=== PATIENT | male | born 1990 | race African-American/Black ===

== ENCOUNTER 2019-01-03 06:43 | Emergency (ER) | payer SELFPAY ==
[2019-01-03] MEDS ORDERED: ONDANSETRON 4 MG/2 ML VIAL ONE (06:55)
[2019-01-03] MEDS ORDERED: NA CHLORIDE 0.9% 1,000 ML ONE (06:55)
[2019-01-03 07:00] LABS: Absolute Lymphocytes (CBC) 0.5 K/uL (0.7-4.9); Basophils % 0.2 % (0-1.3); Lymphocytes % 5.9 % (15.3-44.8); MPV 8.6 fL (7.6-11.3); RBC Red Blood Cell Count 5.15 M/uL (4.33-5.43)
[2019-01-03] MEDS ORDERED: PROMETHAZINE 25 MG/ML VIAL ONE (07:48)
[2019-01-03 07:54] LABS: Bilirubin Direct 0.2 mg/dL (0-0.2); Bilirubin Total 0.5 mg/dL (0.2-1.0); Potassium 3.5 mmol/L (3.5-5.1); Protein, Total 7.5 g/dL (6.4-8.2)
[2019-01-03] MEDS ORDERED: FENTANYL CITR 100 MCG/2 ML ONE (08:21)
--- NOTE | 2019-01-03 08:39 | EDPHYS ---
Physician Documentation [facility] Name: Jerome Joshua Age: 28 yrs Sex: Male : 1990 Arrival Date: 01/03/2019 Time: 06:44 Bed 5 Private MD: ED Physician Quang Blanco HPI: 01/03 06:53 This 28 yrs old Black Male presents to ER via EMS with complaints of Vomiting. jr8 06:53 The patient presents to the emergency department with nausea, vomiting, diarrhea. jr8 Onset: The symptoms/episode began/occurred this morning. Associated signs and symptoms: Pertinent negatives: abdominal pain, GI bleeding, hematuria. Severity of symptoms: At their worst the symptoms were moderate. Pt reports severe nausea, vomiting since early this morning, reports six episodes of vomiting, denies pain. Historical: - Allergies: 06:48 No Known Allergies; ak1 - Home Meds: 06:48 Depakote Oral [Active]; ak1 - PMHx: 06:48 Seizures; Asthma; ak1 - PSHx: 06:48 None; ak1 - Immunization history:: Adult Immunizations unknown. - Social history:: Smoking status: Patient uses tobacco products, smokes one-half pack cigarettes per day, Patient uses alcohol, Patient/guardian denies using street drugs. - Ebola Screening: : No symptoms or risks identified at this time. ROS: 06:53 Constitutional: Negative for fever, chills, and weight loss, Eyes: Negative for injury, jr8 pain, redness, and discharge, ENT: Negative for injury, pain, and discharge, Neck: Negative for injury, pain, and swelling, Cardiovascular: Negative for chest pain, palpitations, and edema, Respiratory: Negative for shortness of breath, cough, wheezing, and pleuritic chest pain, Back: Negative for injury and pain, MS/Extremity: Negative for injury and deformity, Skin: Negative for injury, rash, and discoloration, Neuro: Negative for headache, weakness, numbness, tingling, and seizure. 06:53 Abdomen/GI: Positive for nausea and vomiting, diarrhea, Negative for abdominal pain, abdominal distension, rectal bleeding, bowel incontinence. Exam: 06:53 Constitutional: This is a well developed, well nourished patient who is awake, alert, jr8 and in no acute distress. Head/Face: Normocephalic, atraumatic. Eyes: Pupils equal round and reactive to light, extra-ocular motions intact. Lids and lashes normal. Conjunctiva and sclera are non-icteric and not injected. Cornea within normal limits. Periorbital areas with no swelling, redness, or edema. ENT: Nares patent. No nasal discharge, no septal abnormalities noted. Tympanic membranes are normal and external auditory canals are clear. Oropharynx with no redness, swelling, or masses, exudates, or evidence of obstruction, uvula midline. Mucous membranes moist. Neck: Trachea midline, no thyromegaly or masses palpated, and no cervical lymphadenopathy. Supple, full range of motion without nuchal rigidity, or vertebral point tenderness. No Meningismus. Chest/axilla: Normal chest wall appearance and motion. Nontender with no deformity. No lesions are appreciated. Cardiovascular: Regular rate and rhythm with a normal S1 and S2. No gallops, murmurs, or rubs. Normal PMI, no JVD. No pulse deficits. Respiratory: Lungs have equal breath sounds bilaterally, clear to auscultation and percussion. No rales, rhonchi or wheezes noted. No increased work of breathing, no retractions or nasal flaring. Back: No spinal tenderness. No costovertebral tenderness. Full range of motion. Skin: Warm, dry with normal turgor. Normal color with no rashes, no lesions, and no evidence of cellulitis. MS/ Extremity: Pulses equal, no cyanosis. Neurovascular intact. Full, normal range of motion. Neuro: Awake and alert, GCS 15, oriented to person, place, time, and situation. Cranial nerves II-XII grossly intact. Motor strength 5/5 in all extremities. Sensory grossly intact. Cerebellar exam normal. Normal gait. 06:53 Abdomen/GI: Inspection: abdomen appears normal, Bowel sounds: normal, Palpation: abdomen is soft and non-tender, in all quadrants. Vital Signs: 06:46 BP 139 / 64; Pulse 54; Resp 16; Temp 97.7(TE); Pulse Ox 97% on R/A; Weight 79.38 kg ak1 (R); Height 5 ft. 9 in. (175.26 cm) (R); Pain 4/10; 07:39 BP 126 / 74; Pulse 57; Resp 17; Pulse Ox 99% on R/A; tw2 08:42 BP 117 / 67; Pulse 58; Resp 17; Pulse Ox 96% on R/A; tw2 06:46 Body Mass Index 25.84 (79.38 kg, 175.26 cm) ak1 MDM: 06:48 Patient medically screened. jr8 08:34 Data reviewed: vital signs, nurses notes, lab test result(s). Data interpreted: Pulse jr8 oximetry: on room air is 99 %. Interpretation: normal. Counseling: I had a detailed discussion with the patient and/or guardian regarding: the historical points, exam findings, and any diagnostic results supporting the discharge/admit diagnosis, lab results, the need for outpatient follow up, a family practitioner, to return to the emergency department if symptoms worsen or persist or if there are any questions or concerns that arise at home. Response to treatment: the patient's symptoms have markedly improved after treatment, patient is well hydrated. ED course: Patient feeling better. No more vomiting after being medicated. Patients abdomen reassessed initially and before he was given pain medicine. Both times soft without any focal tenderness. Post medication was feeling better. No acute findings on labs. Will d/c home to f/u with PCP. Return precautions given . 01/03 06:52 Order name: Basic Metabolic Panel; Complete Time: 08:04 8 01/03 06:52 Order name: CBC with Diff jr8 01/03 06:52 Order name: Creatinine for Radiology; Complete Time: 08:04 8 01/03 06:52 Order name: Hepatic Function; Complete Time: 08:04 jr8 01/03 06:52 Order name: Lipase; Complete Time: 08:04 01/03 08:17 Order name: CBC Smear Scan EDWY 01/03 06:52 Order name: IV Saline Lock; Complete Time: 06:54 01/03 06:52 Order name: Labs collected and sent; Complete Time: 06:54 8 01/03 07:05 Order name: Labs - recollect needed; Complete Time: 07:17 bd Administered Medications: 06:57 Drug: Zofran 4 mg Route: IVP; Site: right antecubital; lp1 07:45 Follow up: Response: No adverse reaction; Nausea unchanged tw2 06:58 Drug: NS 0.9% 1000 ml Route: IV; Rate: 1000 ml; Site: right antecubital; lp1 07:55 Follow up: Response: No adverse reaction; IV Status: Completed infusion; IV Intake: tw2 1000ml 07:47 Drug: Phenergan 12.5 mg Route: IVP; Site: right antecubital; tw2 08:45 Follow up: Response: No adverse reaction tw2 08:23 Drug: fentaNYL (PF) 50 mcg Route: IVP; Site: right antecubital; 08:45 Follow up: Response: No adverse reaction; Pain is decreased; RASS: Drowsy (-1) tw2 Disposition: 01/03/19 08:38 Discharged to Home. Impression: Generalized abdominal pain, Gastroenteritis. - Condition is Stable. - Discharge Instructions: Abdominal Pain, Adult, Viral Gastroenteritis, Adult. - Prescriptions for Bentyl 20 mg Oral Tablet - take 1 tablet by ORAL route every 6 hours As needed; 20 tablet. promethazine 25 mg Oral Tablet - take 1 tablet by ORAL route every 6 hours As needed; 20 tablet. - Medication Reconciliation Form, Thank You Letter, Antibiotic Education, Prescription Opioid Use, Work release form form. - Follow up: Private Physician; When: 2 - 3 days; Reason: Recheck today's complaints, Continuance of care, Re-evaluation by your physician. - Problem is new. - Symptoms have improved. Addendum: 01/05/2019 07:53 Co-signature as Attending Physician, Quang Blanco MD I agree with the assessment and c mccracken plan of care. Signatures: Dispatcher [employer] EDMS Dorinda Bravo Steven, RN RN sg Anderson, Corey, MD MD cha Pena, Laura RN RN lp1 Pitero Nava PA PA jr8 Winsome Overton RN RN ak1 Tiffany Bean, RN RN tw2 Corrections: (The following items were deleted from the chart) 01/03 08:47 08:38 01/03/2019 08:38 Discharged to Home. Impression: Generalized abdominal pain; tw2 Gastroenteritis. Condition is Stable. Forms are Work release form, Medication Reconciliation Form, Thank You Letter, Antibiotic Education, Prescription Opioid Use. Follow up: Private Physician; When: 2 - 3 days; Reason: Recheck today's complaints, Continuance of care, Re-evaluation by your physician. Problem is new. Symptoms have improved. jr8
--- NOTE | 2019-01-03 08:39 | ER ---
Nurse's Notes [facility] Name: Jerome Joshua Age: 28 yrs Sex: Male : 1990 Arrival Date: 01/03/2019 Time: 06:44 Bed 5 Private MD: Diagnosis: Generalized abdominal pain;Gastroenteritis Presentation: 01/03 06:47 Presenting complaint: Patient states: vomiting and Diarrhea since 1999 last night. ak1 Transition of care: patient was not received from another setting of care. Onset of symptoms was January 02, 2019. Risk Assessment: Do you want to hurt yourself or someone else? Patient reports no desire to harm self or others. Initial Sepsis Screen: Does the patient meet any 2 criteria? No. Patient's initial sepsis screen is negative. Does the patient have a suspected source of infection? No. Patient's initial sepsis screen is negative. Care prior to arrival: None. 06:47 Method Of Arrival: EMS: [facility] ak1 06:47 Acuity: LINO 3 ak1 Triage Assessment: 06:48 General: Appears in no apparent distress. Behavior is drowsy. Pain: Complains of pain ak1 in abdomen. GI: Reports diarrhea, nausea, vomiting. 06:54 GI: Pt is actively vomiting. lp1 Historical: - Allergies: 06:48 No Known Allergies; ak1 - Home Meds: 06:48 Depakote Oral [Active]; ak1 - PMHx: 06:48 Seizures; Asthma; ak1 - PSHx: 06:48 None; ak1 - Immunization history:: Adult Immunizations unknown. - Social history:: Smoking status: Patient uses tobacco products, smokes one-half pack cigarettes per day, Patient uses alcohol, Patient/guardian denies using street drugs. - Ebola Screening: : No symptoms or risks identified at this time. Screenin:49 Abuse screen: Denies threats or abuse. Denies injuries from another. Nutritional ak1 screening: No deficits noted. Tuberculosis screening: No symptoms or risk factors identified. Fall Risk None identified. Assessment: 07:18 General: Appears in no apparent distress. Behavior is calm, appropriate for age. Pain: tw2 Complains of pain in abdomen. Neuro: Level of Consciousness is awake, alert, obeys commands, Oriented to person, place, time, situation. Cardiovascular: Heart tones S1 S2 Patient's skin is warm and dry. Respiratory: Airway is patent Respiratory effort is even, unlabored, Respiratory pattern is regular, symmetrical, Breath sounds are clear bilaterally. GI: Abdomen is flat, Bowel sounds present X 4 quads. Reports nausea, vomiting. : No signs and/or symptoms were reported regarding the genitourinary system. EENT: No signs and/or symptoms were reported regarding the EENT system. Derm: No signs and/or symptoms reported regarding the dermatologic system. Musculoskeletal: Range of motion: intact in all extremities. 08:42 Reassessment: Patient appears in no apparent distress at this time. No changes from tw2 previously documented assessment. Patient and/or family updated on plan of care and expected duration. Pain level reassessed. Patient is alert, oriented x 3, equal unlabored respirations, skin warm/dry/pink. Patient states symptoms have improved. Vital Signs: 06:46 BP 139 / 64; Pulse 54; Resp 16; Temp 97.7(TE); Pulse Ox 97% on R/A; Weight 79.38 kg ak1 (R); Height 5 ft. 9 in. (175.26 cm) (R); Pain 4/10; 07:39 BP 126 / 74; Pulse 57; Resp 17; Pulse Ox 99% on R/A; tw2 08:42 BP 117 / 67; Pulse 58; Resp 17; Pulse Ox 96% on R/A; tw2 06:46 Body Mass Index 25.84 (79.38 kg, 175.26 cm) ak1 ED Course: 06:44 Patient arrived in ED. ds1 06:46 Arm band placed on Patient placed in an exam room, on a stretcher, on pulse oximetry, ak1 Patient notified of wait time. 06:47 Triage completed. ak1 06:48 Pietro Nava PA is PHCP. jr8 06:48 Quang Blanco MD is Attending Physician. jr8 06:49 Patient has correct armband on for positive identification. Bed in low position. Call ak1 light in reach. Side rails up X2. Pulse ox on. NIBP on. 06:50 Inserted saline lock: 20 gauge in right antecubital area, using aseptic technique. lp1 Blood collected. 07:06 Tiffany Bean RN is Primary Nurse. tw2 07:13 Inserted saline lock: 22 gauge in right forearm, using aseptic technique. Blood tw2 collected. 08:42 No provider procedures requiring assistance completed. tw2 08:47 IV discontinued, intact, bleeding controlled, No redness/swelling at site. Pressure tw2 dressing applied, x2. Administered Medications: 06:57 Drug: Zofran 4 mg Route: IVP; Site: right antecubital; lp1 07:45 Follow up: Response: No adverse reaction; Nausea unchanged tw2 06:58 Drug: NS 0.9% 1000 ml Route: IV; Rate: 1000 ml; Site: right antecubital; lp1 07:55 Follow up: Response: No adverse reaction; IV Status: Completed infusion; IV Intake: tw2 1000ml 07:47 Drug: Phenergan 12.5 mg Route: IVP; Site: right antecubital; tw2 08:45 Follow up: Response: No adverse reaction tw2 08:23 Drug: fentaNYL (PF) 50 mcg Route: IVP; Site: right antecubital; sg 08:45 Follow up: Response: No adverse reaction; Pain is decreased; RASS: Drowsy (-1) tw2 Intake: 07:55 IV: 1000ml; Total: 1000ml. tw2 Outcome: 08:38 Discharge ordered by . bonnie 08:47 Discharged to home ambulatory, with family. tw2 08:47 Condition: stable 08:47 Discharge instructions given to patient, family, Instructed on discharge instructions, follow up and referral plans. no drinking with medication, no driving heavy equipment, medication usage, Demonstrated understanding of instructions, follow-up care, medications, Prescriptions given X 2. 08:47 Patient left the ED. tw2 Signatures: Frantz Patel RN Rosario Platt ds1 Debra Chavira RN RN lp1 Pietro Nava PA PA jr8 Winsome Overton RN RN ak1 Tiffany Bean RN RN tw2
[2019-01-03 08:56] VITALS: TEMP 97.7
[2019-01-03 08:58] VITALS: BP 117/67; O2SAT 96
[2019-01-03 09:41] LABS: Anisocytosis 1+
[2019-01-03 09:42] LABS: Blood Morphology Comment NOTED (NOT SEEN)
[2019-01-03 09:43] LABS: Platelet Estimate ADEQ; Urine White Blood Cell Casts OK
[2019-01-03 09:53] LABS: Platelets, Giant SLIGHT
== END 2019-01-03 08:47 | disposition home or self-care (01) ==
LOC: ER 06:43
DX: K52.9 Noninfective gastroenteritis and colitis, unspecified (principal); G40.909 Epilepsy, unspecified, not intractable, without status epilepticus; F17.210 Nicotine dependence, cigarettes, uncomplicated
CPT/HCPCS: 36415; 80048; 80076; 83690; 85025; 96361; 96374; 96375; 99284; J2405; J2550; J3010; J7030

== ENCOUNTER 2021-08-15 20:30 | Emergency (ER) | payer SELFPAY ==
[2021-08-15 21:48] LABS: Absolute Lymphocytes (CBC) 2.3 K/uL (0.7-4.9); Hematocrit 38.9 % (39.6-49.0); Lymphocytes % 51.7 % (15.3-44.8); MPV 7.6 fL (7.6-11.3)
[2021-08-15 22:01] LABS: Albumin 3.4 g/dL (3.4-5.0); Bilirubin Total 0.2 mg/dL (0.2-1.0); Potassium 3.9 mmol/L (3.5-5.1); Protein, Total 6.7 g/dL (6.4-8.2)
--- NOTE | 2021-08-15 22:10 | ER ---
Nurse's Notes [facility] Name: Jerome Joshua Age: 31 yrs Sex: Male : 1990 Arrival Date: 08/15/2021 Time: 20:34 Bed 16 Private MD: Diagnosis: Person with feared health complaint in whom no diagnosis is made;Anemia, unspecified Presentation: 08/15 20:55 Chief complaint: Patient states: "My eyes are yellow, I've been loosing my hair, I have vc1 had stomach pain and coughing up blood last week with a nose bleed two nights ago. Coronavirus screen: Vaccine status: Patient reports being unvaccinated. Ebola Screen: No symptoms or risks identified at this time. Risk Assessment: Do you want to hurt yourself or someone else? Patient reports no desire to harm self or others. Onset of symptoms is unknown. 20:55 Method Of Arrival: Ambulatory vc1 20:55 Acuity: LINO 3 vc1 Historical: - Allergies: 20:57 No Known Allergies; vc1 - Home Meds: 20:57 Depakote Oral [Active]; Trazodone Oral [Active]; Wellbutrin Oral [Active]; Risperdal vc1 0.25 mg Oral tab 2 tabs 2 times per day [Active]; Seroquel 25 mg Oral tab [Active]; - PMHx: 20:57 Asthma; Seizures; Bipolar disorder; vc1 - PSHx: 20:57 None; vc1 - Immunization history:: Adult Immunizations up to date. - Social history:: Smoking status: Patient reports the use of cigarette tobacco products, smokes one-half pack cigarettes per day, Patient uses alcohol, on a daily basis. Screenin:15 Abuse screen: Denies threats or abuse. Nutritional screening: No deficits noted. jb4 Tuberculosis screening: No symptoms or risk factors identified. Fall Risk None identified. Assessment: 21:15 General: Appears in no apparent distress. comfortable, Behavior is calm, cooperative, jb4 appropriate for age. Pain: Denies pain. Neuro: Level of Consciousness is awake, alert, obeys commands, Oriented to person, place, time, situation. Cardiovascular: Patient's skin is warm and dry. Respiratory: Airway is patent Respiratory effort is even, unlabored, Respiratory pattern is regular, symmetrical. GI: No signs and/or symptoms were reported involving the gastrointestinal system. : No signs and/or symptoms were reported regarding the genitourinary system. EENT: Sclera/Cornea Jaundice discoloration noted to both eyes. Derm: Skin is intact, Skin is dry, Skin is normal, Skin temperature is warm. Musculoskeletal: Circulation, motion, and sensation intact. Range of motion: intact in all extremities. 22:11 Reassessment: Patient appears in no apparent distress at this time. Patient and/or jb4 family updated on plan of care and expected duration. Pain level reassessed. Patient is alert, oriented x 3, equal unlabored respirations, skin warm/dry/pink. 22:39 Reassessment: Patient appears in no apparent distress at this time. Patient and/or jb4 family updated on plan of care and expected duration. Pain level reassessed. Patient is alert, oriented x 3, equal unlabored respirations, skin warm/dry/pink. Vital Signs: 20:59 BP 123 / 81; Pulse 81; Resp 16; Temp 98.8; Pulse Ox 99% ; Weight 65.77 kg; Height 5 ft. vc1 9 in. (175.26 cm); Pain 10/10; 20:59 Body Mass Index 21.41 (65.77 kg, 175.26 cm) vc1 ED Course: 20:34 Patient arrived in ED. bp1 20:41 Carl Banerjee DO is Attending Physician. ms3 20:57 Triage completed. vc1 20:57 Arm band placed on left wrist. vc1 21:15 Patient has correct armband on for positive identification. Bed in low position. Call jb4 light in reach. Side rails up X 1. Client placed on continuous cardiac and pulse oximetry monitoring. NIBP monitoring applied. 21:29 Initial lab(s) drawn, by ma, sent to lab. Inserted saline lock: 18 gauge in left jb4 forearm, using aseptic technique. Blood collected. 22:06 Chandler Villar, MURRAY is Primary Nurse. jb4 22:08 Zheng Nuno MD is Referral Physician. ms3 22:09 Manjinder Kate MD is Referral Physician. ms3 22:12 No provider procedures requiring assistance completed. IV discontinued, intact, jb4 bleeding controlled, No redness/swelling at site. Pressure dressing applied. Administered Medications: No medications were administered Outcome: 22:09 Discharge ordered by . ms3 22:39 Discharged to home ambulatory. jb4 22:39 Condition: stable 22:39 Discharge instructions given to patient, Instructed on discharge instructions, follow up and referral plans. Demonstrated understanding of instructions, follow-up care. 22:40 Patient left the ED. jb4 Signatures: Chandler Villar, RN RN jb4 Carl Banerjee DO DO ms3 Elaina Bang Vanessa, RN RN vc1
--- NOTE | 2021-08-15 22:10 | EDPHYS ---
Physician Documentation [facility] Name: Jerome Joshua Age: 31 yrs Sex: Male : 1990 Arrival Date: 08/15/2021 Time: 20:34 Bed 16 Private MD: ED Physician Carl Banerjee HPI: 08/15 22:10 This 31 yrs old Black Male presents to ER via Ambulatory with complaints of Eye ms3 Problem, Yellowing of eyes. 22:10 The patient is experiencing yellow eyes. Onset: The symptoms/episode began/occurred ms3 today. Duration: the symptoms are continuous. Aggravated by nothing. Alleviated by nothing. Associated signs and symptoms: Pertinent negatives: chills, dizziness, fever, headache. Historical: - Allergies: 20:57 No Known Allergies; vc1 - Home Meds: 20:57 Depakote Oral [Active]; Trazodone Oral [Active]; Wellbutrin Oral [Active]; Risperdal vc1 0.25 mg Oral tab 2 tabs 2 times per day [Active]; Seroquel 25 mg Oral tab [Active]; - PMHx: 20:57 Asthma; Seizures; Bipolar disorder; vc1 - PSHx: 20:57 None; vc1 - Immunization history:: Adult Immunizations up to date. - Social history:: Smoking status: Patient reports the use of cigarette tobacco products, smokes one-half pack cigarettes per day, Patient uses alcohol, on a daily basis. ROS: 22:10 Constitutional: Negative for fever, and chills. Neck: Negative for injury, pain, and ms3 swelling, Cardiovascular: Negative for chest pain, and palpitations. Respiratory: Negative for shortness of breath, cough, wheezing, and pleuritic chest pain, Abdomen/GI: Negative for abdominal pain, nausea, vomiting, diarrhea, and constipation, MS/Extremity: Negative for injury and deformity, Skin: Negative for injury, rash, and discoloration, Psych: Negative for depression, anxiety, suicide ideation, homicidal ideation, and hallucinations. 22:10 Eyes: Positive for icterus. ms3 Exam: 22:10 Constitutional: This is a well developed, well nourished patient who is awake, alert, ms3 and in no acute distress. Head/Face: Normocephalic, atraumatic. Eyes: Pupils equal round and reactive to light, extra-ocular motions intact. Lids and lashes normal. Conjunctiva and sclera are non-icteric and not injected. Periorbital areas with no swelling, redness, or edema. Neck: Trachea midline, no cervical lymphadenopathy. Supple, full range of motion without nuchal rigidity, or vertebral point tenderness. No Meningismus. Chest/axilla: Normal chest wall appearance and motion. Nontender with no deformity. Cardiovascular: Regular rate and rhythm with a normal S1 and S2. No gallops, murmurs, or rubs. Normal PMI, no JVD. No pulse deficits. Respiratory: Lungs have equal breath sounds bilaterally, clear to auscultation and percussion. No rales, rhonchi or wheezes noted. No increased work of breathing, no retractions or nasal flaring. Abdomen/GI: Soft, non-tender, with normal bowel sounds. No distension or tympany. No guarding or rebound. No evidence of tenderness throughout. Skin: Warm, dry with normal turgor. Normal color with no rashes, no lesions, and no evidence of cellulitis. Psych: Awake, alert, with orientation to person, place and time. Behavior, mood, and affect are within normal limits. Vital Signs: 20:59 BP 123 / 81; Pulse 81; Resp 16; Temp 98.8; Pulse Ox 99% ; Weight 65.77 kg; Height 5 ft. vc1 9 in. (175.26 cm); Pain 10/10; 20:59 Body Mass Index 21.41 (65.77 kg, 175.26 cm) vc1 MDM: 21:22 Patient medically screened. ms3 22:10 Differential diagnosis: hepatitis vs bilirubinemia. Data reviewed: vital signs, nurses ms3 notes, lab test result(s). Counseling: I had a detailed discussion with the patient and/or guardian regarding: the historical points, exam findings, and any diagnostic results supporting the discharge/admit diagnosis, lab results, the need for outpatient follow up, to return to the emergency department if symptoms worsen or persist or if there are any questions or concerns that arise at home. 08/15 20:53 Order name: CBC with Diff; Complete Time: 22:07 ms3 08/15 20:53 Order name: CMP; Complete Time: 22:07 ms3 Administered Medications: No medications were administered Disposition Summary: 08/15/21 22:09 Discharge Ordered Location: Home ms3 Condition: Stable ms3 Diagnosis - Person with feared health complaint in whom no diagnosis is made ms3 - Anemia, unspecified ms3 Followup: ms3 - With: Zheng Nuno MD - When: 2 - 3 days - Reason: Recheck today's complaints Followup: ms3 - With: Manjinder Kate MD - When: 2 - 3 days - Reason: Recheck today's complaints Discharge Instructions: - Discharge Summary Sheet ms3 - Anemia ms3 Forms: - Medication Reconciliation Form ms3 - Thank You Letter ms3 - Antibiotic Education ms3 - Prescription Opioid Use ms3 Signatures: Dispatcher [employer] EDMS Emeterio Huertas, PLASMA CENTER TECHNICIAN-C PLASMA CENTER TECHNICIAN-Cla1 Carl Banerjee DO DO ms3 Rebeca Keene, RN RN vc1 Corrections: (The following items were deleted from the chart) 22:12 22:10 Constitutional: Negative for fever, and chills. Eyes: Negative for injury, pain, ms3 redness, and discharge, Neck: Negative for injury, pain, and swelling, Cardiovascular: Negative for chest pain, and palpitations. Respiratory: Negative for shortness of breath, cough, wheezing, and pleuritic chest pain, Abdomen/GI: Negative for abdominal pain, nausea, vomiting, diarrhea, and constipation, MS/Extremity: Negative for injury and deformity, Skin: Negative for injury, rash, and discoloration, Psych: Negative for depression, anxiety, suicide ideation, homicidal ideation, and hallucinations, ms3
[2021-08-16 14:31] VITALS: BP 123/81; TEMP 98.8; O2SAT 99
== END 2021-08-15 22:40 | disposition home or self-care (01) ==
LOC: ER 20:30
DX: Z71.1 Person with feared health complaint in whom no diagnosis is made (principal); D64.9 Anemia, unspecified; F31.9 Bipolar disorder, unspecified; F17.210 Nicotine dependence, cigarettes, uncomplicated
CPT/HCPCS: 36415; 80053; 85025; 99283

== ENCOUNTER 2021-08-25 18:46 | Emergency (ER) | payer SELFPAY ==
--- NOTE | 2021-08-25 19:50 | ER ---
Nurse's Notes [facility] Name: Jerome Joshua Age: 31 yrs Sex: Male : 1990 Arrival Date: 08/25/2021 Time: 18:47 Bed 13 Private MD: Diagnosis: Personality disorder, unspecified Presentation: 08/25 18:54 Chief complaint: Patient states: "I tried hanging myself today about 20 min ago. I am jd3 glad it didn't work, but now that I am down from the tree my neck and back are hurting pretty bad.". Coronavirus screen: At this time, the client does not indicate any symptoms associated with coronavirus-19. Ebola Screen: No symptoms or risks identified at this time. Initial Sepsis Screen: Does the patient meet any 2 criteria? No. Patient's initial sepsis screen is negative. Does the patient have a suspected source of infection? No. Patient's initial sepsis screen is negative. Risk Assessment: Do you want to hurt yourself or someone else? Patient reports desire/thoughts of hurting themselves or someone else. Provider notified. Onset of symptoms was August 25, 2021. 18:54 Method Of Arrival: Ambulatory jd3 18:54 Acuity: LINO 2 jd3 Historical: - Allergies: 18:57 No Known Allergies; jd3 - Home Meds: 18:57 Depakote Oral [Active]; Risperdal 0.25 mg Oral tab 2 tabs 2 times per day [Active]; jd3 Seroquel 25 mg Oral tab [Active]; Trazodone Oral [Active]; Wellbutrin Oral [Active]; - PMHx: 18:57 Asthma; Bipolar disorder; Seizures; jd3 - Immunization history:: Adult Immunizations up to date, Client reports having NOT received the Covid vaccine. Flu vaccine status is unknown. - Social history:: Smoking status: Patient reports the use of cigarette tobacco products, smokes one-half pack cigarettes per day. Screenin:59 Abuse screen: Denies threats or abuse. Denies injuries from another. Nutritional ld1 screening: No deficits noted. Tuberculosis screening: No symptoms or risk factors identified. Fall Risk None identified. Assessment: 19:57 Reassessment: PT refusing to all testing. Denies SI. ERP and PD at bedside discussing ld1 POC. 19:59 General: Appears in no apparent distress. comfortable, Behavior is calm, cooperative, ld1 appropriate for age. Pain: Denies pain. Neuro: Level of Consciousness is awake, alert, obeys commands, Oriented to person, place, time, situation. Cardiovascular: Capillary refill < 3 seconds Patient's skin is warm and dry. Respiratory: Airway is patent Respiratory effort is even, unlabored, Respiratory pattern is regular, symmetrical. GI: Abdomen is flat, non-distended. : No signs and/or symptoms were reported regarding the genitourinary system. EENT: No signs and/or symptoms were reported regarding the EENT system. Derm: No signs and/or symptoms reported regarding the dermatologic system. Musculoskeletal: No signs and/or symptoms reported regarding the musculoskeletal system. Vital Signs: 18:58 BP 130 / 69; Pulse 83; Resp 19 S; Temp 99.0(TE); Pulse Ox 100% on R/A; Weight 74.84 kg jd3 (R); Height 5 ft. 9 in. (175.26 cm) (R); Pain 8/10; 19:59 BP 134 / 70; Pulse 86; Resp 18; Pulse Ox 100% on R/A; ld1 18:58 Body Mass Index 24.37 (74.84 kg, 175.26 cm) jd3 ED Course: 18:47 Patient arrived in ED. as 18:57 Triage completed. jd3 18:57 Carl Banerjee DO is Attending Physician. ms3 18:58 Arm band placed on. jd3 19:18 Attending Physician role handed off by Carl Banerjee DO kdr 19:18 Carl Patel MD is Attending Physician. kdr 19:19 Safety checks: Items removed: yes. Door open/sign placed on door: yes. Family/friend mh5 present: no. Sitter present: Yes. 19:57 Josefa Cotter, MURRAY is Primary Nurse. ld1 19:59 Patient has correct armband on for positive identification. Pulse ox on. NIBP on. ld1 19:59 No provider procedures requiring assistance completed. Patient did not have IV access ld1 during this emergency room visit. Administered Medications: No medications were administered Medication: 19:59 VIS not applicable for this client. ld1 Outcome: 19:50 Discharge ordered by . kdr 19:59 Patient left the ED. ld1 19:59 Discharged to home ambulatory. ld1 19:59 Condition: stable 19:59 Discharge instructions given to patient, Instructed on discharge instructions, follow up and referral plans. Demonstrated understanding of instructions, follow-up care. Signatures: Carl Patel MD MD kdr Martinez, Vannessa Tapia mh5 Allan Maurer RN RN jd3 Carl Banerjee DO DO ms3 Josefa Cotter RN RN ld1 Corrections: (The following items were deleted from the chart) 19:58 19:57 Reassessment: PT refusing to all testing. Denies SI. ERP at bedside discussing ld1 POC. ld1
--- NOTE | 2021-08-25 19:50 | EDPHYS ---
Physician Documentation [facility] Name: Jerome Joshua Age: 31 yrs Sex: Male : 1990 Arrival Date: 08/25/2021 Time: 18:47 Bed 13 Private MD: ED Physician Carl Patel HPI: 08/25 19:52 This 31 yrs old Black Male presents to ER via Ambulatory with complaints of Suicidal kdr Ideation, Neck Pain, <24hrs Old. 19:52 The patient presents to the emergency department with Attention seeking behavior. kdr Onset: The symptoms/episode began/occurred at an unknown time. This is an ongoing problem patient states he is not acutely suicidal or homicidal. He states that he exhibits attention seeking behavior from time to time. He denies wanting to leave his 2 wonderful children that he takes care of. He realizes that he has to be there for them. He stated that he did have a serious suicidal thoughts and attempt about 5 years ago been speaking with police at that time he is at peace with that circumstance and is now, other than participating in attention seeking behavior, not a threat to himself or others. The police officers were present during my interview with the patient and they conducted their own interview as well. Conclusion of our discussion was that he was not acutely suicidal or a threat to others.. Past psychiatric history: Prior diagnosis: bipolar disorder. Associated signs and symptoms: The patient has no apparent associated signs or symptoms. Severity of symptoms: At their worst the symptoms were very mild in the emergency department the symptoms are unchanged have resolved. The patient has experienced similar episodes in the past, chronically. The patient has not recently seen a physician. Historical: - Allergies: 18:57 No Known Allergies; jd3 - Home Meds: 18:57 Depakote Oral [Active]; Risperdal 0.25 mg Oral tab 2 tabs 2 times per day [Active]; jd3 Seroquel 25 mg Oral tab [Active]; Trazodone Oral [Active]; Wellbutrin Oral [Active]; - PMHx: 18:57 Asthma; Bipolar disorder; Seizures; jd3 - Immunization history:: Adult Immunizations up to date, Client reports having NOT received the Covid vaccine. Flu vaccine status is unknown. - Social history:: Smoking status: Patient reports the use of cigarette tobacco products, smokes one-half pack cigarettes per day. ROS: 19:52 Constitutional: Negative for fever, chills, and weight loss, Eyes: Negative for injury, kdr pain, redness, and discharge, ENT: Negative for injury, pain, and discharge, Neck: Negative for injury, pain, and swelling, Cardiovascular: Negative for chest pain, palpitations, and edema, Respiratory: Negative for shortness of breath, cough, wheezing, and pleuritic chest pain, Abdomen/GI: Negative for abdominal pain, nausea, vomiting, diarrhea, and constipation, Back: Negative for injury and pain, : Negative for injury, bleeding, discharge, and swelling, MS/Extremity: Negative for injury and deformity, Skin: Negative for injury, rash, and discoloration, Neuro: Negative for headache, weakness, numbness, tingling, and seizure activity. Allergy/Immunology: Negative for hives, rash, and allergies, Endocrine: Negative for neck swelling, polydipsia, polyuria, polyphagia, and marked weight changes, Hematologic/Lymphatic: Negative for swollen nodes, abnormal bleeding, and unusual bruising. 19:52 Psych: Positive for Bipolar disorder. Exam: 19:52 Constitutional: This is a well developed, well nourished patient who is awake, alert, kdr and in no acute distress. Head/Face: Normocephalic, atraumatic. Eyes: Pupils equal round and reactive to light, extra-ocular motions intact. Lids and lashes normal. Conjunctiva and sclera are non-icteric and not injected. Cornea within normal limits. Periorbital areas with no swelling, redness, or edema. Neck: Trachea midline, no thyromegaly or masses palpated, and no cervical lymphadenopathy. Supple, full range of motion without nuchal rigidity, or vertebral point tenderness. No Meningismus. Chest/axilla: Normal chest wall appearance and motion. Nontender with no deformity. No lesions are appreciated. Cardiovascular: Regular rate and rhythm with a normal S1 and S2. No gallops, murmurs, or rubs. Normal PMI, no JVD. No pulse deficits. Respiratory: Lungs have equal breath sounds bilaterally, clear to auscultation and percussion. No rales, rhonchi or wheezes noted. No increased work of breathing, no retractions or nasal flaring. Abdomen/GI: Soft, non-tender, with normal bowel sounds. No distension or tympany. No guarding or rebound. No evidence of tenderness throughout. Back: No spinal tenderness. No costovertebral tenderness. Full range of motion. Skin: Warm, dry with normal turgor. Normal color with no rashes, no lesions, and no evidence of cellulitis. MS/ Extremity: Pulses equal, no cyanosis. Neurovascular intact. Full, normal range of motion. Neuro: Awake and alert, GCS 15, oriented to person, place, time, and situation. Cranial nerves II-XII grossly intact. Motor strength 5/5 in all extremities. Sensory grossly intact. Cerebellar exam normal. Normal gait. 19:52 Psych: Behavior/mood is pleasant, cooperative, Affect is calm, Oriented to person, place, time, Patient has no thoughts/intents to harm self or others. Judgement / Insight is normal. Delusions/hallucinations are not present. Vital Signs: 18:58 BP 130 / 69; Pulse 83; Resp 19 S; Temp 99.0(TE); Pulse Ox 100% on R/A; Weight 74.84 kg jd3 (R); Height 5 ft. 9 in. (175.26 cm) (R); Pain 8/10; 19:59 BP 134 / 70; Pulse 86; Resp 18; Pulse Ox 100% on R/A; ld1 18:58 Body Mass Index 24.37 (74.84 kg, 175.26 cm) jd3 MDM: 18:59 Patient medically screened. ms3 19:52 Data reviewed: vital signs, nurses notes, lab test result(s), radiologic studies. kdr Counseling: I had a detailed discussion with the patient and/or guardian regarding: the historical points, exam findings, and any diagnostic results supporting the discharge/admit diagnosis, the need for outpatient follow up. Administered Medications: No medications were administered Disposition: 19:21 Patient medically screened. Labs and CTA neck placed awaiting Dr Patel. Patient ms3 attempted to leave and police department called.. Disposition Summary: 08/25/21 19:50 Discharge Ordered Location: Home kdr Problem: an acute exacerbation kdr Symptoms: are resolved kdr Condition: Stable kdr Diagnosis - Personality disorder, unspecified kdr Followup: kdr - With: Private Physician - When: 2 - 3 days - Reason: If symptoms return, Further diagnostic work-up, Recheck today's complaints, Continuance of care, Re-evaluation by your physician Discharge Instructions: - Discharge Summary Sheet kdr - Managing Borderline Personality Disorder kdr Forms: - Medication Reconciliation Form kdr - Thank You Letter kdr Signatures: Dispatcher [employer] Carl Bowles MD MD kdr Allan Maurer RN RN jd3 Carl Banerjee DO DO ms3 Corrections: (The following items were deleted from the chart) 19:58 18:58 EKG - Nurse/Tech ordered. ms3 ld1 19:58 18:58 IV Saline Lock ordered. ms3 ld1 19:58 18:58 Labs collected and sent ordered. ms3 ld1 19:58 18:58 Oxygen Per Protocol ordered. ms3 ld1 19:58 18:58 O2 Sat Monitoring ordered. ms3 ld1 19:58 18:58 Suicide Screening ([place]) ordered. ms3 ld1 19:58 18:58 Urine Dipstick-Ancillary ordered. ms3 ld1
[2021-08-25 20:09] VITALS: BP 130/69; TEMP 99; O2SAT 100
== END 2021-08-25 19:59 | disposition home or self-care (01) ==
LOC: ER 18:46
DX: F60.9 Personality disorder, unspecified (principal); F17.210 Nicotine dependence, cigarettes, uncomplicated
CPT/HCPCS: 99283

== ENCOUNTER 2021-10-03 21:12 | Emergency (ER) | payer SELFPAY ==
--- NOTE | 2021-10-03 21:21 | ER ---
Nurse's Notes [facility] Name: Jerome Joshua Age: 31 yrs Sex: Male : 1990 Arrival Date: 10/03/2021 Time: 21:17 Bed Waiting Private MD: Diagnosis: Presentation: 10/03 21:18 Chief complaint: EMS states: Called for patient with puncture like wound to R FA after lp1 climbing over fence; Wound site dressed by EMS, no uncontrolled bleeding. 21:18 Method Of Arrival: EMS: [facility] 1 21:20 Note Patient appears upset, agitated while being registered by ED staff, [facility]. ED Course: 21:17 Patient arrived in ED. ag3 Administered Medications: No medications were administered Outcome: 21:21 Patient left the ED. 1 Signatures: Debra Chavira RN RN 1 Faye Cadena ag3
== END 2021-10-03 21:21 | disposition left against medical advice (07) ==
LOC: ER 21:12
DX: Z53.21 Procedure and treatment not carried out due to patient leaving prior to being seen by health care provider (principal)
CPT/HCPCS: 99282

== ENCOUNTER 2022-08-06 06:58 | Emergency (ER) | payer SELFPAY ==
[2022-08-06] MEDS ORDERED: NA CHLORIDE 0.9% 1,000 ML ONE (07:33)
[2022-08-06] MEDS ORDERED: DIVALPROEX DR 250 MG TAB PO ONE (07:33)
[2022-08-06] MEDS ORDERED: LORazepam 2 MG/ML VIAL ONE (07:41)
[2022-08-06 07:54] LABS: Absolute Lymphocytes (CBC) 1.5 K/uL (0.7-4.9); Lymphocytes % 20.2 % (15.3-44.8); MCV 81.4 fL (80-100); MPV 7.7 fL (7.6-11.3)
[2022-08-06 07:58] LABS: Protime INR 1.05
[2022-08-06 08:20] LABS: ALT/SGPT 19 U/L (16-61); AST/SGOT 16 U/L (15-37); Alkaline Phosphatase 62 U/L (45-117); BUN Blood Urea Nitrogen 13 mg/dL (7-18); Bicarbonate 25 mEq/L (21-32); Bilirubin Direct 0.1 mg/dL (0-0.2); Bilirubin Total 0.3 mg/dL (0.2-1.0); Glomerular Filtration Rate 61 ml/min (=/>90); Glucose Level 125 mg/dL (74-106); Potassium 4.4 mEq/L (3.5-5.1); Sodium Level 137 mEq/L (136-145); Valproic Acid (Depakene) Level 4.5 mcg/mL (50.0-100.0)
--- NOTE | 2022-08-06 09:59 | EDPHYS ---
Physician Documentation [facility] Name: Jerome Joshua Age: 32 yrs Sex: Male : 1990 Arrival Date: 08/06/2022 Time: 06:58 Bed 4 Private MD: ED Physician Bright Ramirez HPI: 08/06 08:11 This 32 yrs old Black Male presents to ER via EMS with complaints of Probable Seizure. rn 08:11 The patient presents after having a single isolated seizure. Seizure onset: just prior rn to arrival. Associated injury: The patient did not suffer any apparent associated injury. Current symptoms: agitation. 08:11 The patient has experienced similar episodes in the past. EMS reports possible seizure, rn hx of seizures, has not taken his depakote in unknown length of time. Patient denies feeling ill, reports is upset. Denies overdose. No chest pain/sob/headache/focal neuro complaint. Pt brought in by police as well, restrained. . Historical: - Allergies: 07:01 Unable to obtain; aa9 - Home Meds: 07:01 Depakote Oral [Active]; Risperdal 0.25 mg Oral tab 2 tabs 2 times per day [Active]; aa9 Seroquel 25 mg Oral tab [Active]; Trazodone Oral [Active]; Wellbutrin Oral [Active]; - PMHx: 07:01 Asthma; Bipolar disorder; Seizures; aa9 - PSHx: 07:01 Unable to Obtain; aa9 - Immunization history:: Adult Immunizations unknown. - Social history:: Smoking status: unknown. - Family history:: not pertinent. - Hospitalizations: : No recent hospitalization is reported. ROS: 08:11 Constitutional: Negative for fever, chills, and weight loss, Eyes: Negative for injury, rn pain, redness, and discharge, Neck: Negative for injury, pain, and swelling, Cardiovascular: Negative for chest pain, palpitations, and edema, Respiratory: Negative for shortness of breath, cough, wheezing, and pleuritic chest pain, Abdomen/GI: Negative for abdominal pain, nausea, vomiting, diarrhea, and constipation, Back: Negative for injury and pain, MS/Extremity: Negative for injury and deformity, Skin: Negative for injury, rash, and discoloration, Neuro: Negative for headache, weakness, numbness, tingling Exam: 08:11 Constitutional: This is a well developed, well nourished patient who is awake, alert, rn and in no acute distress. Head/Face: Normocephalic, atraumatic. Eyes: Pupils equal round and reactive to light, extra-ocular motions intact. Neck: NO midline tenderness Cardiovascular: Tachycardic, regular. No pulse deficits. Respiratory: No increased work of breathing, no retractions or nasal flaring. Abdomen/GI: Soft, non-tender Back: No spinal tenderness. No costovertebral tenderness. Full range of motion. Skin: Warm, dry with normal turgor. Normal color with no rashes, no lesions, and no evidence of cellulitis. MS/ Extremity: Pulses equal, no cyanosis. Neuro: Awake and alert, GCS 15 09:04 ECG was reviewed by the Attending Physician. rn Vital Signs: 07:04 BP 115 / 65; Pulse 99; Resp 17 S; Temp 98.8(O); Pulse Ox 97% on R/A; aa9 07:42 Pulse 110; Resp 21; Pulse Ox 99% on R/A; ld1 07:46 BP 109 / 84; ld1 08:50 Pulse 105; Resp 18; Pulse Ox 96% on R/A; ld1 MDM: 06:59 Patient medically screened. rn 09:12 Differential diagnosis: drug overdose, seizure. Data reviewed: vital signs, nurses rn notes, lab test result(s), EKG, and as a result, I will discharge patient. Counseling: I had a detailed discussion with the patient and/or guardian regarding: the historical points, exam findings, and any diagnostic results supporting the discharge/admit diagnosis, lab results, the need for outpatient follow up, to return to the emergency department if symptoms worsen or persist or if there are any questions or concerns that arise at home. Response to treatment: the patient's symptoms have markedly improved after treatment, and as a result, I will discharge patient. Special discussion: I discussed with the patient/guardian in detail that at this point there is no indication for admission to the hospital. It is understood, however, that if the symptoms persist or worsen the patient needs to return immediately for re-evaluation. 09:53 ED course: Pt medically clear, no seizure here, stable vitals, in police custody and rn police officers plan on taking him to [facility] when ready. Will dc to [facility] in police custody. Needs to continue his seizure medication and avoid drugs.. 08/06 07:23 Order name: Acetaminophen; Complete Time: 09:12 rn 08/06 07:23 Order name: Basic Metabolic Panel; Complete Time: 09:12 rn 08/06 07:23 Order name: CBC with Diff; Complete Time: 09:12 rn 08/06 07:23 Order name: Hepatic Function; Complete Time: 09:12 rn 08/06 07:23 Order name: PT-INR; Complete Time: 09:12 rn 08/06 07:23 Order name: Ptt, Activated; Complete Time: 09:12 rn 08/06 07:23 Order name: Salicylate; Complete Time: 09:12 rn 08/06 07:23 Order name: Depakote; Complete Time: 09: rn 08/06 07:23 Order name: EKG; Complete Time: 07:25 rn 08/06 07:23 Order name: EKG - Nurse/Tech; Complete Time: 07: rn 08/06 07:23 Order name: IV Saline Lock; Complete Time: 07: rn 08/06 07:23 Order name: Labs collected and sent; Complete Time: 07:42 rn EC: Rate is 88 beats/min. Rhythm is regular. QRS [place] is Normal. VA interval is normal. QRS rn interval is normal. QT interval is normal. No Q waves. T waves are Normal. No ST changes noted. Clinical impression: NSR w/ Non-specific ST/T Changes. Interpreted by me. Reviewed by me. Administered Medications: 07:41 Drug: NS 0.9% IV 1000 ml Route: IV; Rate: 1000 ml; Site: right upper arm; ld1 09:00 Follow up: IV Status: Completed infusion iw 07:41 Drug: LORazepam IM 1 mg Route: IM; Site: left deltoid; ld1 08:00 Follow up: Response: No adverse reaction iw Disposition Summary: 08/06/22 09:58 Discharge Ordered Location: Home rn Problem: new rn Symptoms: have improved rn Condition: Stable rn Diagnosis - Epileptic seizures related to external causes, not intractable, without status rn epilepticus - Restlessness and agitation rn Followup: rn - With: Private Physician - When: As needed - Reason: Recheck today's complaints, Re-evaluation by your physician Discharge Instructions: - Discharge Summary Sheet rn - Epilepsy rn - Seizure, Adult rn - Managing Anger, Adult rn Forms: - Medication Reconciliation Form rn - Thank You Letter rn - 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 EDMS EDMS
--- NOTE | 2022-08-06 09:59 | ER ---
Nurse's Notes [facility] Name: Jerome Joshua Age: 32 yrs Sex: Male : 1990 Arrival Date: 08/06/2022 Time: 06:58 Bed 4 Private MD: Diagnosis: Epileptic seizures related to external causes, not intractable, without status epilepticus;Restlessness and agitation Presentation: 08/06 06:59 Chief complaint: EMS states: toned out for possible seizure by [place] [employer], pt combative aa9 on scene, placed in restraints by PD, [id number], given 5 mg Versed intranasal. calm en route, VS WNL. Coronavirus screen:. Initial Sepsis Screen: Does the patient meet any 2 criteria? No. Patient's initial sepsis screen is negative. Does the patient have a suspected source of infection? No. Patient's initial sepsis screen is negative. Risk Assessment: Do you want to hurt yourself or someone else? Unable to obtain. Onset of symptoms was August 06, 2022. Care prior to arrival: Medication(s) given: Versed 5 MG. Activity prior to arrival: combative. 06:59 Method Of Arrival: EMS: [facility] aa9 07:18 Ebola Screen: Patient negative for fever greater than or equal to 101.5 degrees iw Fahrenheit, and additional compatible Ebola Virus Disease symptoms Patient denies exposure to infectious person. Patient denies travel to an Ebola-affected area in the 21 days before illness onset. No symptoms or risks identified at this time. 07:18 Acuity: LINO 3 iw Triage Assessment: 07:02 General: Appears uncomfortable, unkempt, Behavior is calm. Pain:. Neuro: Level of aa9 Consciousness is awake. Neuro: Seizure activity reported prior to arrival. Cardiovascular: Patient's skin is warm and dry. Respiratory: Airway is patent Respiratory effort is even, unlabored. GI: No deficits noted. : No deficits noted. Musculoskeletal: No signs and/or symptoms reported regarding the musculoskeletal system. Historical: - Allergies: 07:01 Unable to obtain; aa9 - Home Meds: 07:01 Depakote Oral [Active]; Risperdal 0.25 mg Oral tab 2 tabs 2 times per day [Active]; aa9 Seroquel 25 mg Oral tab [Active]; Trazodone Oral [Active]; Wellbutrin Oral [Active]; - PMHx: 07:01 Asthma; Bipolar disorder; Seizures; aa9 - PSHx: 07:01 Unable to Obtain; aa9 - Immunization history:: Adult Immunizations unknown. - Social history:: Smoking status: unknown. - Family history:: not pertinent. - Hospitalizations: : No recent hospitalization is reported. Screenin:42 [facility] ED Fall Risk Assessment (Adult) History of falling in the last 3 months, ld1 including since admission No falls in past 3 months (0 pts). Abuse screen: Denies threats or abuse. Denies injuries from another. Nutritional screening: No deficits noted. Tuberculosis screening: No symptoms or risk factors identified. Assessment: 07:42 General: Appears in no apparent distress. uncomfortable, Behavior is anxious, ld1 combative. Pain: Denies pain. Neuro: Level of Consciousness is awake, alert, obeys commands, Oriented to person, place, time, situation. Cardiovascular: Capillary refill < 3 seconds Patient's skin is warm and dry. Rhythm is sinus tachycardia. Respiratory: Airway is patent Respiratory effort is even, unlabored. GI: Abdomen is flat, non-distended. : No signs and/or symptoms were reported regarding the genitourinary system. EENT: No signs and/or symptoms were reported regarding the EENT system. Derm: No signs and/or symptoms reported regarding the dermatologic system. Musculoskeletal: No signs and/or symptoms reported regarding the musculoskeletal system. Vital Signs: 07:04 BP 115 / 65; Pulse 99; Resp 17 S; Temp 98.8(O); Pulse Ox 97% on R/A; aa9 07:42 Pulse 110; Resp 21; Pulse Ox 99% on R/A; ld1 07:46 BP 109 / 84; ld1 08:50 Pulse 105; Resp 18; Pulse Ox 96% on R/A; ld1 ED Course: 06:59 Patient arrived in ED. aa9 06:59 Bright Ramirez MD is Attending Physician. rn 07:03 Arm band placed on. aa9 07:18 Triage completed. iw 07:42 Haley Leung, RN is Primary Nurse. ko1 07:42 Patient has correct armband on for positive identification. Bed in low position. Call ld1 light in reach. Side rails up X2. PD at bedside with patient. clinical research monitor on. Pulse ox on. NIBP on. Door closed. Warm blanket given. 07:42 No provider procedures requiring assistance completed. Inserted saline lock: 20 gauge ld1 in right upper arm, using aseptic technique. Blood collected. 10:15 IV discontinued, intact, bleeding controlled, No redness/swelling at site. Pressure iw dressing applied. Administered Medications: 07:41 Drug: NS 0.9% IV 1000 ml Route: IV; Rate: 1000 ml; Site: right upper arm; ld1 09:00 Follow up: IV Status: Completed infusion iw 07:41 Drug: LORazepam IM 1 mg Route: IM; Site: left deltoid; ld1 08:00 Follow up: Response: No adverse reaction iw Medication: 07:42 VIS not applicable for this client. ld1 Outcome: 09:58 Discharge ordered by . rn 10:15 Discharged to [employer] Enforcement iw 10:15 Condition: good 10:15 Discharge instructions given to patient. 10:50 Patient left the ED. iw Signatures: Nataliia Rosa RN RN iw Bright Ramirez MD MD rn Sims, Lauren RN RN ld1 Linda Rodgers, RN RN aa9 Haley Leung, RN RN ko1
[2022-08-06 10:55] VITALS: TEMP 98.8
[2022-08-06 10:57] VITALS: BP 109/84
[2022-08-06 10:59] VITALS: O2SAT 96
--- NOTE | 2022-08-07 05:52 | EKG ---
Test Date: 2022-08-06 Test Time: 07:29:04 Bottom Crane Operator: Arturo RENTERIA MEASUREMENT RESULTS: Intervals: Rate: 99 LA: 136 QRSD: 98 QT: 342 QTc: 438 [place]: P: 18 LA: 136 QRS: 69 T: 39 INTERPRETIVE STATEMENTS: Normal sinus rhythm Normal ECG Compared to ECG 11/18/2015 17:46:06 Early repolarization no longer present Electronically Signed On 08-07-22 05:48:49 CDT by Kalin Ring
--- NOTE | 2022-08-08 07:14 | EKG ---
Test Date: 2022-08-06 Test Time: 07:29:45 Career Development Coordinator/Teacher: Arturo RENTERIA MEASUREMENT RESULTS: Intervals: Rate: 88 CO: 176 QRSD: 100 QT: 350 QTc: 423 [place]: P: 33 CO: 176 QRS: 73 T: 36 INTERPRETIVE STATEMENTS: Normal sinus rhythm Normal ECG Compared to ECG 08/06/2022 07:29:04 No significant changes Electronically Signed On 08-08-22 07:10:00 CDT by Kalin Ring
== END 2022-08-06 10:50 | disposition home or self-care (01) ==
LOC: ER 06:58
DX: G40.509 Epileptic seizures related to external causes, not intractable, without status epilepticus (principal); R45.1 Restlessness and agitation
CPT/HCPCS: 36415; 80048; 80076; 80164; 85025; 85610; 85730; 93005; 96360; 96372; 99285; G0480; J7030